=== PATIENT | female | born 1960 | race Caucasian/White ===

== ENCOUNTER 2023-12-16 17:45 | Emergency (ER) | payer OTHER, SELFPAY ==
[2023-12-16 17:46] VITALS: BP 143/85; BMI 21.9
[2023-12-16 19:44] VITALS: BP 120/65
[2023-12-16] MEDS: TYLENOL 1000 MG PO (20:02)
[2023-12-16] MEDS: DUONEB 3 ML INH (20:16)
--- NOTE | 2023-12-16 20:31 | ED.GENMED ---
History of Present Illness
<Katrina Campuzano PA-C - Last Filed: 12/17/23 00:33>
General
Chief Complaint: Cough
Source: patient and spouse
Exam Limitations: none
Time Seen by Provider: 12/16/23 19:28
Nursing documentation reviewed up to this point in time: agreed with
History of Present Illness
History of Present Illness:
Patient is a 63-year-old female with history asthma presenting to the emergency department from urgent care with concerns of hypoxia in setting of known COVID infection. Patient states that approximate 4 days ago she started to feel fatigue and
generally unwell, took a COVID test was found to be positive. She states that 2 days following the positive test she started feel much worse endorsing severe sore throat, cough, fevers. Symptoms persisted and she her primary care recommended that
she be seen in an urgent care facility. She was at an urgent care today where her pulse ox was in the mid 80s and they recommended she come to the emergency department.
Patient states that she has been coughing with clear-colored sputum. She is been taking Mucinex, Motrin at home. Patient denies any GI symptoms, chest pain, or subjective shortness of breath.
Past History
<Katrina Campuzano PA-C - Last Filed: 12/17/23 00:33>
Past History
ED Past Medical History: None
ED Past Surgical History: None
Review of Systems
<Katrina Campuzano PA-C - Last Filed: 12/17/23 00:33>
Review of Systems
Allergies reviewed?: Yes
All Other Systems: ROS reviewed and negative except as documented in HPI and ROS
Phy Exam
<Katrina Campuzano PA-C - Last Filed: 12/17/23 00:33>
Physical Exam
Physical Exam:
Vitals: Patient's vital signs are stable. Febrile.
General: Patient is well appearing, no acute distress. Nontoxic-appearing
Skin: Warm and dry, no rashes or lesions
Head: Normocephalic, atraumatic
Eyes: Sclera nonicteric. EOMs intact. No nystagmus.
Throat: Posterior pharynx mildly erythematous without any tonsillar edema or exudates. Uvula midline. No drooling or trismus. Protecting airway
Neck: Normal ROM, no cervical spine tenderness, no meningismus
Cardiac: Regular rate and rhythm, no murmurs.
Pulm: Patient in no apparent respiratory distress. Oxygenating between 94-96 on room air. Slightly decreased breath sounds bilaterally with intermittent coughing. No wheezing.
Abdomen: No abdominal tenderness.
Extremities: No evidence of cyanosis or edema. Great distal pulse
Neuro: AAOx3. CN II-XII intact. No focal neurologic deficits. Speech fluid.
Psychiatric: Normal affect.
Course
<Katrina Campuzano PA-C - Last Filed: 12/17/23 00:33>
Orders/Labs/Results
Orders:
Orders
12/16/23 19:03
CR Chest - 2 Views Urgent
Comment:
Reason For Exam: Covid +, cough
12/16/23 19:45
Acetaminophen [Tylenol] 650 mg .ROUTE .STK-MED ONE
12/16/23 19:50
Acetaminophen [Tylenol] 1,000 mg PO NOW STA
12/16/23 19:[address] Non Medication Order As Directed
Physician Order: walking pulse ox please
Above order entered?: Yes
12/16/23 20:14
Ipratropium/Albuterol Sulfate [Duoneb] 3 ml .ROUTE .STK-MED ONE
12/16/23 20:15
Ipratropium/Albuterol Sulfate [Duoneb] 3 ml INH R NOW STA
Vital Signs
Initial and Last Documented VS:
Initial Vital Signs
Temp Pulse Resp BP Pulse Ox
98.1 F 97 18 143/85 94
12/16/23 17:46 12/16/23 17:46 12/16/23 17:46 12/16/23 17:46 12/16/23 17:46
Last Documented Vital Signs
Temp Pulse Resp BP Pulse Ox
100.7 F H 105 20 117/69 93
12/16/23 21:11 12/16/23 21:11 12/16/23 21:11 12/16/23 21:11 12/16/23 21:11
<Margoth Chambers MD - Last Filed: 12/16/23 21:11>
Orders/Labs/Results
Orders:
Orders
12/16/23 19:03
CR Chest - 2 Views Urgent
Comment:
Reason For Exam: Covid +, cough
12/16/23 19:45
Acetaminophen [Tylenol] 650 mg .ROUTE .STK-MED ONE
12/16/23 19:50
Acetaminophen [Tylenol] 1,000 mg PO NOW STA
12/16/23 19:[address] Non Medication Order As Directed
Physician Order: walking pulse ox please
Above order entered?: Yes
12/16/23 20:14
Ipratropium/Albuterol Sulfate [Duoneb] 3 ml .ROUTE .STK-MED ONE
12/16/23 20:15
Ipratropium/Albuterol Sulfate [Duoneb] 3 ml INH R NOW STA
Vital Signs
Initial and Last Documented VS:
Initial Vital Signs
Temp Pulse Resp BP Pulse Ox
98.1 F 97 18 143/85 94
12/16/23 17:46 12/16/23 17:46 12/16/23 17:46 12/16/23 17:46 12/16/23 17:46
Last Documented Vital Signs
Temp Pulse Resp BP Pulse Ox
100.7 F H 105 20 117/69 93
12/16/23 21:11 12/16/23 21:11 12/16/23 21:11 12/16/23 21:11 12/16/23 21:11
<Katrina Campuzano PA-C - Last Filed: 12/17/23 00:33>
MDM/Problems Addressed
Differential Diagnosis Includes:
Not limited to: COVID infection, bronchitis, pneumonia, asthma exacerbation
MDM/Problems Addressed:
Patient is 63-year-old female, COVID-positive presenting to the emergency department for evaluation of hypoxia noted while at urgent care earlier today. Patient with sore throat, cough, fever, fatigue since earlier this week tested positive.
also recently with COVID. Patient seen in urgent care earlier tonight for evaluation and sent due to no oxygen saturation in mid 80s per patient. Patient's vital signs were stable in triage. Oxygen saturation of 94 on room air. Physical
exam as above. Patient has very mildly decreased breath sounds bilaterally but otherwise clear heart regular rate and rhythm. No lower extremity edema. Mild pharyngeal edema without any exudates. No meningeal signs. Chest x-ray was obtained
which shows no acute abnormalities. Patient did spike a fever and was given a gram of Tylenol. DuoNeb was given. Walking pulse ox was obtained which was stable in the mid 90s on room air.
Patient has been monitored in the emergency department for few hours and has maintained very stable pulse ox is ranging from 94-96 on room air. No hypoxia. No evidence of pneumonia or indication for antibiotics/admission at this time. Suspect
likely viral. Patient will be discharged with instructions for supportive care. Will send albuterol inhaler as patient states she recently ran out but does have history of asthma. Instructed patient to take Tylenol, stay well-hydrated. Return
precautions discussed at length.
Chronic conditions affecting care:
Asthma
Acute Exacerbation and/or Progression of Chronic Illness:
N/A
<Katrina Campuzano PA-C - Last Filed: 12/17/23 00:33>
*Radiology
Radiology exam reviewed: preliminary read by ED provider (No acute pulmonary disease) and radiology read reviewed
*Pulse Oximetry
Patient hypoxic: no
*EKG
Interpreted by ED Provider?: NA
*Dolly Driver Interpretation
Rate: Dolly Driver- N/A
*Critical Care Note
Total Time (30-74mins, 75-104mins- exclusive of procedures): Not Applicable
ED Attending Note
<Katrina Campuzano PA-C - Last Filed: 12/17/23 00:33>
-
Portions of this chart may have been created with voice recognition software.� Occasional wrong word or��sound alike� substitutions may have occurred due to the inherent limitations of voice recognition software.
<Margoth Chambers MD - Last Filed: 12/16/23 21:11>
ED Attending Note
Patient seen and examined by attending physician: Yes
I performed the substantive portion of visit, reviewed & personally made and approve the management plan that is documented in note by myself or PEGGY.: Yes
ED Attending Note:
Patient appears flushed but is nontoxic without meningismus. Lungs are clear. Patient watched for several hours with pulse ox above 90% and no respiratory distress in the ED. Patient comfortable going home. Encouraged to keep drinking fluids and
antipyretics
Discharge Plan
Departure
Patient Disposition: Home (Routine Discharge)
Date of Disposition: 12/16/23
Time of Disposition: 21:15
Patient with high blood pressure during this ER visit?: No
Condition: Good
Covid-19: Confirmed COVID-19
Discharge Problem:
COVID
Instructions: COVID-19 ED
Prescriptions:
New
albuterol sulfate 90 mcg/actuation HFA aerosol inhaler
2 puff inhalation Q6H PRN (Reason: cough, wheezing) Qty: 8.5 0RF
Rx Instructions:
PRN cough, wheezi
No Action
cetirizine-pseudoephedrine [Aller-Triston D] 1 EACH tablet extended release 12 hr
1 ea PO DAILY
lorazepam 0.5 MG tablet
0.5 mg PO BID
Patient Comments:
last filled #60 on 11/30/2019 at [facility]
ibuprofen 200 MG tablet
200 mg PO Q4HPRN PRN (Reason: mild pain)
albuterol sulfate 5 MG/ML solution for nebulization
5 mg inhalation Q6HPRN PRN (Reason: SOB)
sertraline 50 MG tablet
50 mg PO HS
cholecalciferol (vitamin D3) 1,000 UNITS tablet
5,000 units PO DAILY
denosumab [Prolia] 60 MG/ML syringe
60 mg SQ [id number]
Patient Comments:
1 Injection twice per year. Last dose was 1 month ago and was first injection for the year
multivitamin with folic acid [Tab-A-Jhonny] 1 TABLET tablet
1 tab PO DAILY
biotin 5,000 MCG tablet, sublingual
10,000 mcg PO DAILY
rabies vacc,human diploid (PF) [Imovax Rabies Vaccine (PF)] 1 ML recon soln
1 ml IM . DIRECTED Qty: 3 0RF
Rx Instructions:
See Rabies Vaccine Post Exposure Prophylaxis Instruction Sheet for Dosing Instructions
Referrals:
Nicholas Castro, [Family Provider] - Follow up in 5-7 days
Activity Restrictions/Additional Instructions:
RETURN TO THE EMERGENCY DEPARTMENT WITH HIGH FEVERS, SEVERE HEADACHE OR NECK PAIN, CHEST PAIN, SHORTNESS OF BREATH/DIFFICULTY BREATHING, COUGHING UP BLOOD, WORSENING IN CURRENT SYMPTOMS, OR ANY OTHER CONCERNS
-A prescription for an inhaler has been sent to your pharmacy. You can use this every 4-6 hours as needed for cough, chest tightness, wheezing. In addition�you can take Motrin as needed for sore throat. You should continue to take Tylenol as
needed for fever. You can continue to take [id number] decongestants as needed. Is importantly stay well-hydrated
-You should follow-up with your primary care provider for further evaluation and to ensure that symptoms are improving.
Monitor your symptoms closely return to the emergency department with any acute worsening/new symptoms
Interventions
Interventions:
*Risk Screen - Suicide Last Done: 12/16/23 17:46
*General Assessment Last Done: 12/16/23 18:18
*Neglect/Abuse Screening Last Done: 12/16/23 17:46
ED- Fall Risk Assessment Last Done: 12/16/23 17:46
*Nursing Disposition Last Done: 12/16/23 21:21
ED- Pulmonary Assessment Last Done: 12/16/23 20:05
Discharge Date and Time
Discharge Date/Time: 12/16/23 21:21
Print Language: MONGOLIAN
[2023-12-16 21:11] VITALS: BP 117/69
== END 2023-12-16 21:21 | disposition home or self-care (01) ==
LOC: EMR 17:45
PROVIDERS: EMERGENCY PHYSICIAN Emergency Medicine; FAMILY PHYSICIAN Family Medicine
DX: U07.1 COVID-19 (principal); J45.909 Unspecified asthma, uncomplicated
CPT/HCPCS: 99283; 71046

== ENCOUNTER → 2024-01-09 08:02 | Outpatient (REF) | payer OTHER, SELFPAY | LOC: HWRAD 08:02 | PROVIDERS: ATTENDING PHYSICIAN Internal Medicine Rheumatology; FAMILY PHYSICIAN Family Medicine | DX: M81.0 Age-related osteoporosis without current pathological fracture (principal) | CPT/HCPCS: 77080 ==

== ENCOUNTER → 2024-03-28 15:04 | Outpatient (REF) | payer OTHER, SELFPAY | LOC: HWWDC 15:04 | PROVIDERS: ATTENDING PHYSICIAN Midwife; FAMILY PHYSICIAN Family Medicine | DX: Z12.31 Encounter for screening mammogram for malignant neoplasm of breast (principal) | CPT/HCPCS: 77063; 77067 ==

== ENCOUNTER → 2024-07-18 15:14 | Outpatient (REF) | payer OTHER, SELFPAY | LOC: PAVMRI 15:14 | PROVIDERS: ATTENDING PHYSICIAN Orthopaedic Surgery; FAMILY PHYSICIAN Family Medicine | DX: M48.061 Spinal stenosis, lumbar region without neurogenic claudication (principal) | CPT/HCPCS: 72148 ==

== ENCOUNTER → 2025-05-01 11:29 | Outpatient (REF) | payer OTHER, SELFPAY | LOC: WDC 11:29 | PROVIDERS: ATTENDING PHYSICIAN Nurse Practitioner Obstetrics & Gynecology; FAMILY PHYSICIAN Family Medicine | DX: Z12.31 Encounter for screening mammogram for malignant neoplasm of breast (principal) | CPT/HCPCS: 77063; 77067 ==

== ENCOUNTER 2025-05-14 06:34 | Day surgery (SDC) | payer OTHER, SELFPAY | END 2025-05-14 11:35 | disposition home or self-care (01) | LOC: GI 06:34 | PROVIDERS: ATTENDING PHYSICIAN Internal Medicine Gastroenterology | DX: Z12.11 Encounter for screening for malignant neoplasm of colon (principal); Z86.0100 Personal history of colon polyps, unspecified; K57.30 Diverticulosis of large intestine without perforation or abscess without bleeding; K64.8 Other hemorrhoids; K63.5 Polyp of colon; K63.89 Other specified diseases of intestine | CPT/HCPCS: 45380; 88305 ==